=== PATIENT | female | born 1995 | race African-American/Black ===

== ENCOUNTER 2016-11-17 04:16 | Inpatient (IN) | payer OTHER ==
[2016-11-17] MEDS ORDERED: MISOPROSTOL 0.2 MG TABLET ONE (04:42)
[2016-11-17] MEDS ORDERED: OXYTOCIN/NORMAL SALINE 20 UNIT/1,000 ML RTUINJ ONE (04:42)
[2016-11-17] MEDS ORDERED: LIDOCAINE 1% INJ-PF (10 MG/ML) 30 ML SDV ONE (04:42)
[2016-11-17] MEDS ORDERED: METHYLERGONOVINE MALEATE INJ/PF 0.2 MG/1 ML AMPULE ONE (05:21)
[2016-11-17] MEDS ORDERED: BENZOCAINE/MENTHOL AEROSOL SPRAY 56 ML TOP PRN (05:38)
[2016-11-17] MEDS ORDERED: ACETAMINOPHEN WITH CODEINE #3 TABLET PO PRN (05:38)
[2016-11-17] MEDS ORDERED: MEASLES,MUMPS&RUBELLA VACC/PF 0.5 ML VIAL SUBCUT PRN (05:38)
[2016-11-17] MEDS ORDERED: OXYTOCIN/NORMAL SALINE 1,000 ML IV PRN (05:38)
[2016-11-17] MEDS ORDERED: DIPH/PERTUSS(ACELL)/TETANUS VAC/PF 0.5 ML SYR (>=10YO) IM PRN (05:38)
[2016-11-17] MEDS ORDERED: DIBUCAINE 1% OINTMENT 28 GM TP PRN (05:38)
[2016-11-17] MEDS ORDERED: AMPICILLIN SOD/SULBACTAM 3 GM VIAL IV SCH (05:45)
[2016-11-17 05:49] LABS: APPEARANCE,URINE SLIGHTLY-CLOUDY; BILIRUBIN,URINE NEGATIVE (NEGATIVE); GLUCOSE, URINE NEGATIVE (NEGATIVE); KETONES,URINE NEGATIVE (NEGATIVE); LEUKOCYTE ESTERASE,URINE SMALL (NEGATIVE); NITRITE,URINE NEGATIVE (NEGATIVE); PROTEIN,URINE NEGATIVE (NEGATIVE); URINE SPECIFIC GRAVITY 1.006; UROBILINOGEN,URINE NEGATIVE mg/dL (<2.0)
[2016-11-17 06:04] LABS: URINE BARBITURATES SCREEN NEGATIVE; URINE METHADONE SCREEN NEGATIVE; URINE OPIATES LOW NEGATIVE; URINE PHENCYCLIDINE SCREEN NEGATIVE
[2016-11-17 06:11] LABS: ABSOLUTE LYMPHOCYTES (AUTO) 0.7 10^3/uL (0.5-4.7); ABSOLUTE MONOCYTES (AUTO) 0.9 10^3/uL (0.1-1.4); ABSOLUTE NEUT (AUTO) 7.3 10^3/uL (1.7-8.2); BASOPHILS % (AUTO) 0.1 % (0-2); HEMATOCRIT 33.7 % (36.0-47.0); HEMOGLOBIN 11.5 g/dL (12.0-15.5); HGB HCT DIFFERENCE 0.8; MEAN CORPUSCULAR HEMOGLOBIN 34.8 pg (27.0-33.4); MEAN CORPUSCULAR HGB CONC 34.1 g/dL (32.0-36.0); MEAN CORPUSCULAR VOLUME 102 fl (80-97); MONOCYTES % (AUTO) 10.5 % (3-13); RED BLOOD COUNT 3.31 10^6/uL (3.72-5.28); RED CELL DISTRIBUTION WIDTH 13.1 % (11.5-14.0); SEGMENTED NEUTROPHILS % (AUTO) 81.4 % (42-78)
[2016-11-17] MEDS ORDERED: OXYTOCIN 10 UNIT/ML VIAL ONE ×2 (06:19→08:10)
[2016-11-17] MEDS ORDERED: AMPICILLIN SOD/SULBACTAM 3 GM VIAL ONE (06:40)
[2016-11-17] MEDS ORDERED: RINGERS SOLUTION,LACTATED 1,000 ML IV PRN (07:00)
[2016-11-17] MEDS ORDERED: IBUPROFEN 800 MG TABLET ONE (08:13)
[2016-11-17] MEDS: IBUPROFEN 800 MG TABLET PO SCH ×3 (08:18→21:43)
--- NOTE | 2016-11-17 09:01 | Admission Physical ---
Datetime Report Generated by CPN: 11/17/2016 09:01 CURRENT ADMISSION Chief Complaint: Uterine Contractions; Suspected Ruptured Membranes Indication for Induction: Not Applicable Admit Plan: Admit to Unit; Initiate Labor Protocol ALLERGIES Medication Allergies: No Medication Allergies: No Known Allergies (11/17/2016) Latex: No Latex Allergies Food Allergies: denies Environmental Allergies: denies OBSTETRICAL HISTORY EDC: 11/21/2016 00:00 : 2 Para: 1 Term: 1 : 0 SAB: 0 IAB: 0 Livin Gestational Diabetes: No Rh Sensitization: No Incompetent Cervix: No FREDDY: No Infertility: No ART Treatment: No Uterine Anomaly: No IUGR: No Hx Previous C/S: No Macrosomia: No Hx Loss/Stillborn: No PIH: No Hx : No Placenta Previa/Abruption: No Depression/PP Depression: Yes PTL/PROM: Yes Post Hemorrhage: Yes Current Procedures: Ultrasound; NST Obstetrical History Comments: g1- , 2016, delivered at 35 weeks, male g2-preciptious delivery at 39.3, current , increased bleeding at delivery EBL 350ml, received pitocin im and iv, methergine, and cytotec SEE RECORDS Alcohol: No Marijuana : No Cocaine: No Other Illicit Drugs: No Cigarettes: Never Smoker. [id number] MEDICAL HISTORY Diabetes: No Blood Transfusion: No Pulmonary Disease (Asthma, TB): No Breast Disease: No Hypertension: No Electronic Commerce Specialist Surgery: No Heart Disease: No Hosp/Surgery: Yes Autoimmune Disorder: No Anesthetic Complications: No Kidney Disease: No Abnormal Pap Smear: No Neuro/Epilepsy: No Psychiatric Disorders: No Other Medical Diseases: No Hepatitis/Liver Disease: No Significant Family History: No Varicosities/Phlebitis: No Trauma/Violence : No Thyroid Dysfunction: No Medical History Comments: childbirth now x 2, depression in past was on zoloft INFECTIOUS HISTORY Gonorrhea: No Genital Herpes: No Chlamydia: Yes Tuberculosis: No Syphilis: No Hepatitis: No HIV/AIDS Exposure: No Rash or Viral Illness: No HPV: No Infectious History Comments: chlamydia 2015 PHYSICAL EXAM General: Normal HEENT: Normal Neurologic: Normal Thyroid: Normal Heart: Normal Lungs: Normal Breast: Normal Back: Normal Abdomen: Normal Genitourinary Exam: Normal Extremities: Normal DTRs: Normal Pelvic Type: Adequate Vital Signs: Reviewed VAGINAL EXAM Dilatation: 10 Effacement: 100 Station: 2 MEMBRANES Pooling: Positive Membranes: Ruptured Amniotic Fluid Color: Clear FETUS A EGA: 39.3 Monitoring: External US FHR- Baseline: 140 Variability: Moderate 6-25bpm Accelerations: 15X15 Decelerations: None FHR Category: Category I Estimated Weight (gm): 3600 Presentation: Vertex Admit Comment: precipitous delivery <10 of arrival to unit PLANS FOR LABOR AND DELIVERY Labor and Delivery: None Pain Management: Natural Feeding Preference: Both Benefit of Breast Feed Discussed: Yes Circumcision: N/A INFORMED CONSENT Signature: with User ID: [email or web address]
[2016-11-17] MEDS: SENNOSIDES/DOCUSATE 8.6-50 MG 1 EACH TABLET PO SCH (10:50)
[2016-11-17] MEDS: DOCUSATE SODIUM 100 MG CAPSULE PO SCH ×2 (10:50→17:56)
[2016-11-17] MEDS: PRENATAL VITAMIN W-O CA NO5/FE FUMARATE/FA CAPSULE PO SCH (10:51)
[2016-11-17] MEDS: FERROUS SULFATE 325 MG TABLET PO SCH ×2 (10:51→17:56)
[2016-11-17] MEDS: AMPICILLIN SODIUM/SULBACTAM NA 3 GM in NORMAL SALINE 100 ML IV SCH ×2 (15:20→21:44)
[2016-11-17] MEDS: ACETAMINOPHEN WITH CODEINE #3 TABLET PO PRN (20:09)
[2016-11-17] MEDS: ZOLPIDEM TARTRATE 5 MG TABLET PO PRN (23:19)
[2016-11-18] MEDS: ACETAMINOPHEN WITH CODEINE #3 TABLET PO PRN ×2 (03:56→17:47)
[2016-11-18] MEDS: IBUPROFEN 800 MG TABLET PO SCH ×3 (05:24→21:38)
[2016-11-18 06:47] LABS: HEMATOCRIT 27.1 % (36.0-47.0); HGB HCT DIFFERENCE 0.8; MEAN CORPUSCULAR HEMOGLOBIN 35.1 pg (27.0-33.4); MEAN CORPUSCULAR HGB CONC 34.2 g/dL (32.0-36.0); MEAN CORPUSCULAR VOLUME 103 fl (80-97); RED BLOOD COUNT 2.64 10^6/uL (3.72-5.28); RED CELL DISTRIBUTION WIDTH 13.3 % (11.5-14.0); WHITE BLOOD COUNT 9.8 10^3/uL (4.0-10.5)
[2016-11-18 06:56] LABS: HEMOGLOBIN 9.3 g/dL (12.0-15.5)
--- NOTE | 2016-11-18 09:19 | PDOC PROGRESS REPORT ---
Subjective-OB Subjective: Post Delivery Day: 21 year old. Denies any needs at this time. Depression w suicidal ideation was in 2016 during first . Physical Exam (OB) Vital Signs: Temp Pulse Resp BP Pulse Ox 97.9 F 71 16 105/64 100 11/17/16 20:03 11/17/16 20:03 11/17/16 20:03 11/17/16 20:03 11/17/16 20:03 Intake & Output 11/17/16 11/18/16 11/19/16 06:59 06:59 06:59 Intake Total 100 Balance 100 Weight 79 kg - PIH/Pre-Eclampsia Clonus: Negative Headache: Absent Epigastric Pain: No Visual Changes: No - Lochia Lochia Amount: Scant < 10 ml Lochia Color: Rubra/Red - Abdomen Description: Tender, Soft Hernia Present: No Bowel Sounds: Normoactive Flatus Presence: Present Stool: No Fundal Description: Firm, Midline Fundal Height: u/u - u/2 Objective-Diagnostic Laboratory: 11/18/16 06:24 11/18/16 06:24 WBC 9.8 RBC 2.64 L Hgb 9.3 L D Hct 27.1 L MCV 103 H MCH 35.1 H MCHC 34.2 RDW 13.3 Plt Count 167
[2016-11-18] MEDS: SENNOSIDES/DOCUSATE 8.6-50 MG 1 EACH TABLET PO SCH (09:51)
[2016-11-18] MEDS: DOCUSATE SODIUM 100 MG CAPSULE PO SCH ×2 (09:51→17:47)
[2016-11-18] MEDS: FERROUS SULFATE 325 MG TABLET PO SCH ×2 (09:51→17:47)
[2016-11-18] MEDS: PRENATAL VITAMIN W-O CA NO5/FE FUMARATE/FA CAPSULE PO SCH (09:51)
--- NOTE | 2016-11-18 15:51 | Delivery Summary ---
Del Sum A-C Datetime Report Generated by CPN: 11/18/2016 15:50 DELIVERY PERSONNEL DELIVERY PERSONNEL: [phone] Delivery Doctor:: Anabell Sales MD Labor and Delivery Nurse:: CHENG Gordon/ELECTRONIC ASSEMBLER: Isabell Hyatt, ST MATERNAL INFORMATION Delivery Anesthesia: None Medications During Delivery: cytotec 800 mcg PA, Pitocin 10 mg IM, Methergine 0.25 mcg Medications After Delivery: Pitocin 10 Units IM; Pitocin Bolus-Please Comment; Pitocin Drip 20 Units/1000ml NSS; Methergine 0.2mg IM; Cytotec 800mcg Per Rectum/Vagina Estimated Blood Loss (ml): 350 Maternal Complications: Precipitous Labor (<3hrs) LABOR SUMMARY EDC: 11/21/2016 00:00 No. Babies in Womb: 1 Attempted: No Labor Anesthesia: None LABOR INFORMATION Reason for Induction: Not Applicable Onset of Labor: 11/17/2016 02:30 Complete Dilatation: 11/17/2016 04:42 Oxytocin: N/A Group B Beta Strep: negative Steroids Given: None Reason Steroids Not Administered: Not Applicable MEMBRANES Membranes Rupture Method: Spontaneous Rupture of Membranes: 11/17/2016 02:00 Length of Rupture (hr): 2.73 Amniotic Fluid Color: Clear Amniotic Fluid Amount: Small Amniotic Fluid Odor: Normal STAGES OF LABOR Stage 1 hr: 2 Stage 1 min: 12 Stage 2 hr: 0 Stage 2 min: 2 Stage 3 hr: 0 Stage 3 min: 4 Total Time in Labor hr: 2 Total Time in Labor min: 18 VAGINAL DELIVERY Episiotomy: None Laceration Extension: N/A Laceration Type: None Laceration Repair: Not Applicable Sponge Count Correct: N/A Sharps Count Correct: Yes CSECTION DELIVERY Primary Indication: N/A Secondary Indication: N/A BABY A INFORMATION Delivery Date/Time: 11/17/2016 04:44 Method of Delivery: Vaginal Method of Delivery: Vaginal Born in Route : No : N/A Forceps: N/A Vacuum Extraction: N/A Shoulder Dystocia : No PRESENTATION/POSITION BABY A Presentation: Cephalic Cephalic Presentation: Vertex Vertex Position: Left Occipital Anterior Breech Presentation: N/A PLACENTA INFORMATION BABY A Placenta Delivery Time : 11/17/2016 04:48 Placenta Method of Delivery: Spontaneous Placenta Method of Delivery: Spontaneous Placenta Status: Delivered SCORES BABY A Heart Rate 1 min: >100 bpm Resp Effort 1 min: Good Cry Reflex Irritability 1 min: Cough or Sneeze or Pulls Away Muscle Tone 1 min: Active Motion Color 1 min: Body [place], Extremities Blue Resuscitation Effort 1 min: Tactile Stimulation SCORE 1 MIN: 9 Heart Rate 5 min: >100 bpm Resp Effort 5 min: Good Cry Reflex Irritability 5 min: Cough or Sneeze or Pulls Away Muscle Tone 5 min: Active Motion Color 5 min: Completely [place] Resuscitation Effort 5 min: Tactile Stimulation SCORE 5 MIN: 10 INFANT INFORMATION BABY A Gestational Age at Delivery: 39.3 Gestational Status: Full Term- 39- 40.6 Weeks Outcome : Liveborn Condition : Stable Infant Sex: Female Sex: Female IDENTIFICATION BABY A Infant Verification Date/Time: 11/17/2016 05:27 ID Band Number: [id number] Mother's Name Verified: Yes RN Verifying : RN Aracelis Additional Verifying Personnel: CHENG Urias WEIGHT/LENGTH BABY A Birthweight (gm): 2990 Infant Weight (lb): 6 Weight (oz): 9 Infant Length (in): 19.00 Infant Length (cm): 48.26 CORD INFORMATION BABY A No. Cord Vessels: 3 Nuchal Cord : N/A Cord Blood Taken: Yes-For Storage (Mom's Blood type +) Suction: Mouth ASSESSMENT BABY A Complications: None Physical Findings at Delivery: Within Normal Limits Respirations: Appears Normal Skin to Skin: No Openstack Cloud Consulting Architect/ALS Called : No Infant Care By: CHENG Aracelis Transferred To: Remains with Mother BABY B INFORMATION : N/A SIGNATURES Signature: with User ID: Tom
[2016-11-19] MEDS: ZOLPIDEM TARTRATE 5 MG TABLET PO PRN (00:35)
[2016-11-19] MEDS: IBUPROFEN 800 MG TABLET PO SCH ×2 (06:19→13:32)
--- NOTE | 2016-11-19 08:58 | PDOC PROGRESS REPORT ---
Subjective-OB Subjective: Post Delivery Day: 21 year old. Denies any needs at this time Doing well, breast/bottle feeding, ambulating, voiding, no depression, scant bleeding, desires IUD at 4 weeks, desires motrin rx Physical Exam (OB) Vital Signs: Temp Pulse Resp BP Pulse Ox 98.0 F 73 14 109/60 100 11/19/16 08:23 11/19/16 08:23 11/19/16 08:23 11/19/16 08:23 11/19/16 08:23 Intake & Output 11/18/16 11/19/16 11/20/16 06:59 06:59 06:59 Intake Total 100 1000 Balance 100 1000 - PIH/Pre-Eclampsia Clonus: Negative Headache: Absent Epigastric Pain: No Visual Changes: No - Lochia Lochia Amount: Small 10-25 ml Lochia Color: Rubra/Red - Abdomen Description: Soft, Round Hernia Present: No Fundal Description: Firm, Midline Fundal Height: u/u - u/2 Objective-Diagnostic Laboratory: 11/18/16 06:24 Assessment and Plan(PN) - Assessment and Plan (1) Uterine atony, , current hospitalization Is this a current diagnosis for this admission?: Yes (2) Vaginal delivery Is this a current diagnosis for this admission?: Yes (3) Anemia Qualifiers: Anemia type: iron deficiency Is this a current diagnosis for this admission?: Yes (4) History depression w suicidal ideation Is this a current diagnosis for this admission?: Yes - Time Spent with Patient Time with patient: Less than 15 minutes Medications reviewed and adjusted accordingly: Yes - Disposition Anticipated Discharge: Home Within: Other - home today
--- NOTE | 2016-11-19 09:03 | PDOC DISCHARGE SUMMARY ---
Final Diagnosis Discharge Date: 11/19/16 - Final Diagnosis (1) Uterine atony, , current hospitalization Is this a current diagnosis for this admission?: Yes (2) Vaginal delivery Is this a current diagnosis for this admission?: Yes (4) History depression w suicidal ideation Is this a current diagnosis for this admission?: Yes Discharge Data - Discharge Medication Home Medications: Pnv No.122/Iron/Folic Acid [ Multi Tablet] 1 tab PO DAILY 11/17/16 Ferrous Sulfate [Feosol 325 mg Tablet] 325 mg PO BID #0 tablet 11/19/16 Ibuprofen [Motrin 800 mg Tablet] 800 mg PO Q8 #60 tablet 11/19/16 Gestational Age: 39.3 Reason(s) for Admission: Onset of Labor Procedures: Ultrasound Intrapartum Procedure(s): Spontaneous Vaginal Delivery - Data Baby 1 Female at 1 minute: 9 at 5 minutes: 10 Weight: 2.977 kg Home with Mother: Yes Complications: No - Diagnosis Test Laboratory: Temp Pulse Resp BP Pulse Ox 98.0 F 73 14 109/60 100 11/19/16 08:23 11/19/16 08:23 11/19/16 08:23 11/19/16 08:23 11/19/16 08:23 11/17/16 11/17/16 11/18/16 04:38 05:43 06:24 RBC 3.31 L 2.64 L Hgb 11.5 L 9.3 L D Hct 33.7 L 27.1 L Urine Opiates Screen NEGATIVE - Discharge information/Instructions Discharge Activity: No Lifting Over 10 Pounds, No Lifting/Push/Pulling, Pelvic Rest Discharge Diet: As Tolerated, Regular Disposition: HOME, SELF-CARE Follow up with: [facility] in: 4, Weeks - IUD
[2016-11-19] MEDS: PRENATAL VITAMIN W-O CA NO5/FE FUMARATE/FA CAPSULE PO SCH (10:51)
[2016-11-19] MEDS: SENNOSIDES/DOCUSATE 8.6-50 MG 1 EACH TABLET PO SCH (10:51)
[2016-11-19] MEDS: DOCUSATE SODIUM 100 MG CAPSULE PO SCH ×2 (10:51→18:17)
[2016-11-19] MEDS: FERROUS SULFATE 325 MG TABLET PO SCH ×2 (10:51→18:16)
[2016-11-19 11:55] VITALS: BP 104/58
--- NOTE | 2016-11-19 13:46 | Delivery Summary ---
Del Sum A-C Datetime Report Generated by CPN: 11/19/2016 13:45 DELIVERY PERSONNEL DELIVERY PERSONNEL: [phone] Delivery Doctor:: Anabell Sales MD Labor and Delivery Nurse:: CHENG Gordon Tech/MEDICAL APPOINTMENT SCHEDULER: Isabell Hyatt, ST MATERNAL INFORMATION Delivery Anesthesia: None Medications During Delivery: cytotec 800 mcg AR, Pitocin 10 mg IM, Methergine 0.25 mcg Medications After Delivery: Pitocin 10 Units IM; Pitocin Bolus-Please Comment; Pitocin Drip 20 Units/1000ml NSS; Methergine 0.2mg IM; Cytotec 800mcg Per Rectum/Vagina Estimated Blood Loss (ml): 350 Maternal Complications: Precipitous Labor (<3hrs) LABOR SUMMARY EDC: 11/21/2016 00:00 No. Babies in Womb: 1 Attempted: No Labor Anesthesia: None LABOR INFORMATION Reason for Induction: Not Applicable Onset of Labor: 11/17/2016 02:30 Complete Dilatation: 11/17/2016 04:42 Oxytocin: N/A Group B Beta Strep: negative Steroids Given: None Reason Steroids Not Administered: Not Applicable MEMBRANES Membranes Rupture Method: Spontaneous Rupture of Membranes: 11/17/2016 02:00 Length of Rupture (hr): 2.73 Amniotic Fluid Color: Clear Amniotic Fluid Amount: Small Amniotic Fluid Odor: Normal STAGES OF LABOR Stage 1 hr: 2 Stage 1 min: 12 Stage 2 hr: 0 Stage 2 min: 2 Stage 3 hr: 0 Stage 3 min: 4 Total Time in Labor hr: 2 Total Time in Labor min: 18 VAGINAL DELIVERY Episiotomy: None Laceration Extension: N/A Laceration Type: None Laceration Repair: Not Applicable Sponge Count Correct: N/A Sharps Count Correct: Yes CSECTION DELIVERY Primary Indication: N/A Secondary Indication: N/A BABY A INFORMATION Delivery Date/Time: 11/17/2016 04:44 Method of Delivery: Vaginal Born in Route : No : N/A Forceps: N/A Vacuum Extraction: N/A Shoulder Dystocia : No PRESENTATION/POSITION BABY A Presentation: Cephalic Cephalic Presentation: Vertex Vertex Position: Left Occipital Anterior Breech Presentation: N/A PLACENTA INFORMATION BABY A Placenta Delivery Time : 11/17/2016 04:48 Placenta Method of Delivery: Spontaneous Placenta Status: Delivered SCORES BABY A Heart Rate 1 min: >100 bpm Resp Effort 1 min: Good Cry Reflex Irritability 1 min: Cough or Sneeze or Pulls Away Muscle Tone 1 min: Active Motion Color 1 min: Body [place], Extremities Blue Resuscitation Effort 1 min: Tactile Stimulation SCORE 1 MIN: 9 Heart Rate 5 min: >100 bpm Resp Effort 5 min: Good Cry Reflex Irritability 5 min: Cough or Sneeze or Pulls Away Muscle Tone 5 min: Active Motion Color 5 min: Completely [place] Resuscitation Effort 5 min: Tactile Stimulation SCORE 5 MIN: 10 INFANT INFORMATION BABY A Gestational Age at Delivery: 39.3 Gestational Status: Full Term- 39- 40.6 Weeks Infant Outcome : Liveborn Infant Condition : Stable Infant Sex: Female IDENTIFICATION BABY A Infant Verification Date/Time: 11/17/2016 05:27 ID Band Number: [id number] Mother's Name Verified: Yes RN Verifying Infant: RN Aracelis Additional Verifying Personnel: CHENG Urias WEIGHT/LENGTH BABY A Infant Birthweight (gm): 2990 Weight (lb): 6 Infant Weight (oz): 9 Length (in): 19.00 Infant Length (cm): 48.26 CORD INFORMATION BABY A No. Cord Vessels: 3 Nuchal Cord : N/A Cord Blood Taken: Yes-For Storage (Mom's Blood type +) Infant Suction: Mouth ASSESSMENT BABY A Complications: None Physical Findings at Delivery: Within Normal Limits Infant Respirations: Appears Normal Skin to Skin: No Public Administration Professor/ALS Called : No Infant Care By: RN Aracelis Transferred To: Remains with Mother BABY B INFORMATION : N/A SIGNATURES Signature: with User ID: Tom
== END 2016-11-19 19:37 | disposition home or self-care (01) | DRG 774 ==
LOC: LC 04:16 → LR 04:44 → 2S 09:00
PROVIDERS: ADMIT Obstetrics & Gynecology; ATTEND Obstetrics & Gynecology
PROC: 10E0XZZ Delivery of Products of Conception, External Approach (ICD-10-PCS; principal; 2016-11-17)
PROC: 4A1HXCZ Monitoring of Products of Conception, Cardiac Rate, External Approach (ICD-10-PCS; 2016-11-17)
DX: O62.3 Precipitate labor (principal); O72.1 Other immediate postpartum hemorrhage; O99.02 Anemia complicating childbirth; D50.9 Iron deficiency anemia, unspecified; Z3A.39 39 weeks gestation of pregnancy; Z37.0 Single live birth
CPT/HCPCS: 36415; 80307; 81005; 85025; 85027; 86592; 86850; 86900; 86901; J0295; J2210; J2590; J3490

== ENCOUNTER 2018-04-29 21:52 | Emergency (ER) | payer OTHER ==
[2018-04-29 22:10] VITALS: BP 144/87
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
[2018-04-30 00:05] LABS: URINE AMPHETAMINES SCREEN NEGATIVE; URINE BARBITURATES SCREEN NEGATIVE; URINE BENZODIAZEPINES SCREEN NEGATIVE; URINE COCAINE SCREEN NEGATIVE; URINE MARIJUANA (THC) SCREEN UNCONFIRMED POSITIVE; URINE METHADONE SCREEN NEGATIVE; URINE PHENCYCLIDINE SCREEN NEGATIVE
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
== END 2018-04-30 00:58 | disposition home or self-care (01) ==
LOC: ER 21:52
DX: R51 Headache (principal); V49.9XXA Car occupant (driver) (passenger) injured in unspecified traffic accident, initial encounter; F12.10 Cannabis abuse, uncomplicated; R41.3 Other amnesia; R40.0 Somnolence; R32 Unspecified urinary incontinence
CPT/HCPCS: 70450; 80307; 81025; 99284